=== PATIENT | male | born 1945 | race Caucasian/White ===

== ENCOUNTER 2024-05-25 10:25 | Day surgery (SDC) | payer MEDICARE, OTHER ==
[2024-05-25] MEDS ORDERED: Propofol 200 MG/20 ML SDV ONE (11:10)
[2024-05-25] MEDS ORDERED: fentaNYL 100 MCG/2 ML SDV ONE (11:10)
[2024-05-25] MEDS: Lactated Ringers 1,000 ML IV SCH (11:26)
== END 2024-05-25 13:30 | disposition home or self-care (01) ==
LOC: VM.SDS 10:25
PROVIDERS: ATTEND Family Medicine
DX: K29.50 Unspecified chronic gastritis without bleeding (principal); K31.89 Other diseases of stomach and duodenum; K31.7 Polyp of stomach and duodenum; D50.9 Iron deficiency anemia, unspecified; K92.1 Melena; K21.9 Gastro-esophageal reflux disease without esophagitis; I12.9 Hypertensive chronic kidney disease with stage 1 through stage 4 chronic kidney disease, or unspecified chronic kidney disease; N18.30 Chronic kidney disease, stage 3 unspecified; E66.9 Obesity, unspecified; Z88.5 Allergy status to narcotic agent; Z90.49 Acquired absence of other specified parts of digestive tract; Z79.899 Other long term (current) drug therapy
CPT/HCPCS: 00731; 43239; 43251; 88305; 88342; 99100; J2704; J3010; J7120

== ENCOUNTER 2025-03-09 16:26 | Emergency (ER) | payer MEDICARE, OTHER ==
[2025-03-09] MEDS ORDERED: Sodium Chloride 0.9% 10 ML Syringe FLUSH PRN (16:44)
[2025-03-09] MEDS: Lactated Ringers 1,000 ML IV ONE (17:03)
== END 2025-03-09 18:05 | disposition home or self-care (01) ==
LOC: VM.ED 16:26
DX: E86.0 Dehydration (principal); I10 Essential (primary) hypertension; K21.9 Gastro-esophageal reflux disease without esophagitis; Z90.49 Acquired absence of other specified parts of digestive tract; Z88.5 Allergy status to narcotic agent; Z88.8 Allergy status to other drugs, medicaments and biological substances
CPT/HCPCS: 96360; 99281-25; 99284; J7120

== ENCOUNTER 2025-03-16 09:46 | Emergency (ER) | payer MEDICARE, OTHER ==
[2025-03-16 10:13] LABS: APPEARANCE,URINE SLIGHTLY CLOUDY (CLEAR); GLUCOSE,URINE NEGATIVE (NEGATIVE); OCCULT BLOOD,URINE SMALL (NEGATIVE)
[2025-03-16 10:14] LABS: SQUAMOUS EPITHELIAL CELLS,UR FEW /HPF (NOT SEEN)
[2025-03-16 10:40] LABS: BASOPHILS ABSOLUTE AUTO 0.0 x10^3/uL (0.0-0.2); BASOPHILS PERCENT AUTO 0.6 % (0.2-1.2); EOSINOPHILS ABSOLUTE AUTO 0.0 x10^3/uL (0.0-0.5); EOSINOPHILS PERCENT AUTO 0.5 % (0.0-4.0); IMMATURE GRAN ABSOLUTE AUTO 0.02 x10^3/uL (0.00-0.07); IMMATURE GRAN PERCENT AUTO 0.30 % (0.00-0.43); LYMPHOCYTES ABSOLUTE AUTO 0.3 x10^3/uL (1.0-4.8); LYMPHOCYTES PERCENT AUTO 4.4 % (25.0-50.0); MONOCYTES ABSOLUTE AUTO 0.8 x10^3/uL (0.0-0.8); MONOCYTES PERCENT AUTO 11.8 % (2.0-11.0); NEUTROPHILS ABSOLUTE AUTO 5.5 x10^3/uL (1.8-7.7); NEUTROPHILS PERCENT AUTO 82.4 % (50.0-80.0); RED BLOOD CELL COUNT 2.87 x10^6/uL (4.5-6.0); WHITE BLOOD CELL COUNT,WBC 6.6 x10^3/uL (4.0-10.0)
[2025-03-16 10:49] LABS: PLATELET COUNT,PLT 214 x10^3/uL (130-400)
[2025-03-16 11:00] LABS: A/G RATIO 0.61; ALANINE AMINOTRANSFERASE,ALT 15.0 U/L (16-63); ASPARTATE AMNIOTRANSFERASE,AST 10.0 U/L (15-37); BILIRUBIN TOTAL 0.5 mg/dL (0.2-1.0); BLOOD UREA NITROGEN,BUN 24.0 mg/dL (7-18); CARBON DIOXIDE,CO2 24.0 mmol/L (21-32); CHLORIDE,CL 105.0 mmol/L (98-107); CREATININE 2.1 mg/dL (0.70-1.30); EST CRCL DRUG DOSING (CG) 30.38 mL/min; GLUCOSE RANDOM 124.0 mg/dL (70-99); POTASSIUM,K 4.2 mmol/L (3.5-5.1); PROTEIN TOTAL,TP 6.6 g/dL (6.4-8.2); SODIUM,NA 139.0 mmol/L (136-145)
[2025-03-16 11:01] LABS: ESTIMATED GFR 31.0 mL/min (>=60)
[2025-03-16] MEDS ORDERED: Sodium Chloride 0.9% 10 ML Syringe FLUSH PRN (11:11)
== END 2025-03-16 12:15 | disposition home or self-care (01) ==
LOC: VM.ED 09:46
DX: N30.90 Cystitis, unspecified without hematuria (principal); I10 Essential (primary) hypertension; K21.9 Gastro-esophageal reflux disease without esophagitis; E86.0 Dehydration; Z88.5 Allergy status to narcotic agent; Z88.8 Allergy status to other drugs, medicaments and biological substances; Z79.899 Other long term (current) drug therapy; Z90.49 Acquired absence of other specified parts of digestive tract
CPT/HCPCS: 36415; 51798; 80053; 81001; 83605; 85025; 87086; 87088; 87186; 96361; 96374; 99284; 99284-25; A9270-GY; J0696; J7030

== ENCOUNTER 2025-03-16 17:34 | Inpatient (IN) | payer MEDICARE, OTHER ==
[2025-03-16] MEDS ORDERED: Sodium Chloride 0.9% 10 ML Syringe FLUSH PRN (17:36)
[2025-03-16 17:50] LABS: BASOPHILS ABSOLUTE AUTO 0.0 x10^3/uL (0.0-0.2); BASOPHILS PERCENT AUTO 0.6 % (0.2-1.2); EOSINOPHILS ABSOLUTE AUTO 0.1 x10^3/uL (0.0-0.5); EOSINOPHILS PERCENT AUTO 1.6 % (0.0-4.0); IMMATURE GRAN ABSOLUTE AUTO 0.01 x10^3/uL (0.00-0.07); IMMATURE GRAN PERCENT AUTO 0.20 % (0.00-0.43); LYMPHOCYTES ABSOLUTE AUTO 0.2 x10^3/uL (1.0-4.8); LYMPHOCYTES PERCENT AUTO 3.6 % (25.0-50.0); MONOCYTES ABSOLUTE AUTO 0.6 x10^3/uL (0.0-0.8); MONOCYTES PERCENT AUTO 11.0 % (2.0-11.0); NEUTROPHILS ABSOLUTE AUTO 4.1 x10^3/uL (1.8-7.7); NEUTROPHILS PERCENT AUTO 83.0 % (50.0-80.0); PLATELET COUNT,PLT 170 x10^3/uL (130-400); RED BLOOD CELL COUNT 2.75 x10^6/uL (4.5-6.0)
[2025-03-16 17:53] LABS: WHITE BLOOD CELL COUNT,WBC 5.0 x10^3/uL (4.0-10.0)
[2025-03-16 18:13] LABS: A/G RATIO 0.58; ALANINE AMINOTRANSFERASE,ALT 15 U/L (16-63); ASPARTATE AMNIOTRANSFERASE,AST 13 U/L (15-37); BILIRUBIN TOTAL 0.4 mg/dL (0.2-1.0); BLOOD UREA NITROGEN,BUN 25 mg/dL (7-18); CARBON DIOXIDE,CO2 22 mmol/L (21-32); CHLORIDE,CL 106 mmol/L (98-107); CREATININE 2.2 mg/dL (0.70-1.30); ESTIMATED GFR 30 mL/min (>=60); GLUCOSE RANDOM 140 mg/dL (70-99); POTASSIUM,K 3.9 mmol/L (3.5-5.1); PROTEIN TOTAL,TP 6.3 g/dL (6.4-8.2); SODIUM,NA 139 mmol/L (136-145)
[2025-03-16] MEDS ORDERED: Fluticasone Propionate Nasal Spray 9.9 ML BOTTLE NASBOTH PRN (19:16)
[2025-03-16] MEDS ORDERED: Silver Sulfadiazine 1% Crm 50 GM Tube TOP SCH (21:00)
[2025-03-16] MEDS: Miconazole 2% Top Powder 45 GM Container TOP SCH (21:08)
[2025-03-17 08:05] LABS: BASOPHILS ABSOLUTE AUTO 0.0 x10^3/uL (0.0-0.2); BASOPHILS PERCENT AUTO 0.9 % (0.2-1.2); EOSINOPHILS ABSOLUTE AUTO 0.1 x10^3/uL (0.0-0.5); EOSINOPHILS PERCENT AUTO 2.4 % (0.0-4.0); IMMATURE GRAN ABSOLUTE AUTO 0.02 x10^3/uL (0.00-0.07); IMMATURE GRAN PERCENT AUTO 0.50 % (0.00-0.43); LYMPHOCYTES ABSOLUTE AUTO 0.2 x10^3/uL (1.0-4.8); LYMPHOCYTES PERCENT AUTO 5.7 % (25.0-50.0); MONOCYTES ABSOLUTE AUTO 0.7 x10^3/uL (0.0-0.8); MONOCYTES PERCENT AUTO 15.8 % (2.0-11.0); NEUTROPHILS ABSOLUTE AUTO 3.2 x10^3/uL (1.8-7.7); NEUTROPHILS PERCENT AUTO 74.7 % (50.0-80.0); PLATELET COUNT,PLT 143 x10^3/uL (130-400); RED BLOOD CELL COUNT 2.65 x10^6/uL (4.5-6.0); WHITE BLOOD CELL COUNT,WBC 4.2 x10^3/uL (4.0-10.0)
[2025-03-17 08:18] LABS: A/G RATIO 0.49; ALANINE AMINOTRANSFERASE,ALT 12.0 U/L (16-63); ASPARTATE AMNIOTRANSFERASE,AST 13.0 U/L (15-37); BILIRUBIN TOTAL 0.4 mg/dL (0.2-1.0); BLOOD UREA NITROGEN,BUN 23.0 mg/dL (7-18); CARBON DIOXIDE,CO2 22.0 mmol/L (21-32); CHLORIDE,CL 109.0 mmol/L (98-107); CREATININE 2.2 mg/dL (0.70-1.30); EST CRCL DRUG DOSING (CG) 25.46 mL/min; GLUCOSE RANDOM 109.0 mg/dL (70-99); POTASSIUM,K 3.9 mmol/L (3.5-5.1); PROTEIN TOTAL,TP 6.1 g/dL (6.4-8.2); SODIUM,NA 142.0 mmol/L (136-145)
[2025-03-17 08:21] LABS: ESTIMATED GFR 30.0 mL/min (>=60)
[2025-03-17] MEDS: Cholecalciferol (Vitamin D3) 25 MCG Tab PO SCH (08:57)
[2025-03-17] MEDS: Psyllium Husk Powder Sugar Free 5.85 GM Packet PO SCH (09:01)
[2025-03-17] MEDS: Ondansetron 4 MG/2 ML SDV IVPUSH PRN (22:16)
[2025-03-18 08:13] LABS: BASOPHILS ABSOLUTE AUTO 0.0 x10^3/uL (0.0-0.2); BASOPHILS PERCENT AUTO 1.3 % (0.2-1.2); EOSINOPHILS ABSOLUTE AUTO 0.4 x10^3/uL (0.0-0.5); EOSINOPHILS PERCENT AUTO 13.8 % (0.0-4.0); IMMATURE GRAN ABSOLUTE AUTO 0.01 x10^3/uL (0.00-0.07); IMMATURE GRAN PERCENT AUTO 0.30 % (0.00-0.43); LYMPHOCYTES ABSOLUTE AUTO 0.3 x10^3/uL (1.0-4.8); LYMPHOCYTES PERCENT AUTO 10.1 % (25.0-50.0); MONOCYTES ABSOLUTE AUTO 0.7 x10^3/uL (0.0-0.8); MONOCYTES PERCENT AUTO 24.5 % (2.0-11.0); NEUTROPHILS ABSOLUTE AUTO 1.5 x10^3/uL (1.8-7.7); NEUTROPHILS PERCENT AUTO 50.0 % (50.0-80.0); PLATELET COUNT,PLT 144 x10^3/uL (130-400); RED BLOOD CELL COUNT 2.82 x10^6/uL (4.5-6.0); WHITE BLOOD CELL COUNT,WBC 3.0 x10^3/uL (4.0-10.0)
[2025-03-18 08:34] LABS: A/G RATIO 0.5; ASPARTATE AMNIOTRANSFERASE,AST 14.0 U/L (15-37); BILIRUBIN TOTAL 0.2 mg/dL (0.2-1.0); BLOOD UREA NITROGEN,BUN 24.0 mg/dL (7-18); CARBON DIOXIDE,CO2 24.0 mmol/L (21-32); CHLORIDE,CL 109.0 mmol/L (98-107); CREATININE 1.9 mg/dL (0.70-1.30); EST CRCL DRUG DOSING (CG) 29.47 mL/min; GLUCOSE RANDOM 103.0 mg/dL (70-99); POTASSIUM,K 3.7 mmol/L (3.5-5.1); PROTEIN TOTAL,TP 6.3 g/dL (6.4-8.2); SODIUM,NA 142.0 mmol/L (136-145)
[2025-03-18 08:35] LABS: ESTIMATED GFR 35.0 mL/min (>=60)
[2025-03-18 08:56] LABS: ALANINE AMINOTRANSFERASE,ALT 16.0 U/L (16-63)
[2025-03-19 06:54] LABS: BASOPHILS ABSOLUTE AUTO 0.1 x10^3/uL (0.0-0.2); BASOPHILS PERCENT AUTO 1.9 % (0.2-1.2); EOSINOPHILS ABSOLUTE AUTO 0.5 x10^3/uL (0.0-0.5); EOSINOPHILS PERCENT AUTO 16.9 % (0.0-4.0); IMMATURE GRAN ABSOLUTE AUTO 0.01 x10^3/uL (0.00-0.07); IMMATURE GRAN PERCENT AUTO 0.30 % (0.00-0.43); LYMPHOCYTES ABSOLUTE AUTO 0.3 x10^3/uL (1.0-4.8); LYMPHOCYTES PERCENT AUTO 10.2 % (25.0-50.0); MONOCYTES ABSOLUTE AUTO 0.8 x10^3/uL (0.0-0.8); MONOCYTES PERCENT AUTO 24.8 % (2.0-11.0); NEUTROPHILS ABSOLUTE AUTO 1.4 x10^3/uL (1.8-7.7); NEUTROPHILS PERCENT AUTO 45.9 % (50.0-80.0); RED BLOOD CELL COUNT 2.69 x10^6/uL (4.5-6.0); WHITE BLOOD CELL COUNT,WBC 3.1 x10^3/uL (4.0-10.0)
[2025-03-19 07:09] LABS: A/G RATIO 0.51; ALANINE AMINOTRANSFERASE,ALT 17.0 U/L (16-63); ASPARTATE AMNIOTRANSFERASE,AST 17.0 U/L (15-37); BILIRUBIN TOTAL 0.1 mg/dL (0.2-1.0); BLOOD UREA NITROGEN,BUN 22.0 mg/dL (7-18); CARBON DIOXIDE,CO2 23.0 mmol/L (21-32); CHLORIDE,CL 109.0 mmol/L (98-107); CREATININE 1.6 mg/dL (0.70-1.30); EST CRCL DRUG DOSING (CG) 35.0 mL/min; GLUCOSE RANDOM 105.0 mg/dL (70-99); POTASSIUM,K 3.6 mmol/L (3.5-5.1); PROTEIN TOTAL,TP 6.2 g/dL (6.4-8.2); SODIUM,NA 142.0 mmol/L (136-145)
[2025-03-19 07:10] LABS: ESTIMATED GFR 44.0 mL/min (>=60); PLATELET COUNT,PLT 139 x10^3/uL (130-400)
[2025-03-19] MEDS: Iron Sucrose Complex 100 MG/5 ML SDV IVPUSH ONE (09:19)
[2025-03-20 07:05] LABS: BASOPHILS ABSOLUTE AUTO 0.0 x10^3/uL (0.0-0.2); BASOPHILS PERCENT AUTO 0.9 % (0.2-1.2); EOSINOPHILS ABSOLUTE AUTO 0.7 x10^3/uL (0.0-0.5); EOSINOPHILS PERCENT AUTO 23.0 % (0.0-4.0); IMMATURE GRAN ABSOLUTE AUTO 0.01 x10^3/uL (0.00-0.07); IMMATURE GRAN PERCENT AUTO 0.30 % (0.00-0.43); LYMPHOCYTES ABSOLUTE AUTO 0.3 x10^3/uL (1.0-4.8); LYMPHOCYTES PERCENT AUTO 9.5 % (25.0-50.0); MONOCYTES ABSOLUTE AUTO 0.6 x10^3/uL (0.0-0.8); MONOCYTES PERCENT AUTO 18.0 % (2.0-11.0); NEUTROPHILS ABSOLUTE AUTO 1.5 x10^3/uL (1.8-7.7); NEUTROPHILS PERCENT AUTO 48.3 % (50.0-80.0); PLATELET COUNT,PLT 138 x10^3/uL (130-400); RED BLOOD CELL COUNT 2.62 x10^6/uL (4.5-6.0)
[2025-03-20 07:26] LABS: WHITE BLOOD CELL COUNT,WBC 3.2 x10^3/uL (4.0-10.0)
[2025-03-20 07:34] LABS: A/G RATIO 0.54; ALANINE AMINOTRANSFERASE,ALT 21.0 U/L (16-63); ASPARTATE AMNIOTRANSFERASE,AST 21.0 U/L (15-37); BILIRUBIN TOTAL 0.2 mg/dL (0.2-1.0); BLOOD UREA NITROGEN,BUN 21.0 mg/dL (7-18); CARBON DIOXIDE,CO2 25.0 mmol/L (21-32); CHLORIDE,CL 109.0 mmol/L (98-107); CREATININE 1.5 mg/dL (0.70-1.30); EST CRCL DRUG DOSING (CG) 37.33 mL/min; ESTIMATED GFR 47.0 mL/min (>=60); GLUCOSE RANDOM 105.0 mg/dL (70-99); POTASSIUM,K 3.3 mmol/L (3.5-5.1); PROTEIN TOTAL,TP 6.0 g/dL (6.4-8.2); SODIUM,NA 142.0 mmol/L (136-145)
[2025-03-20] MEDS: Furosemide 20 MG/2 ML VIAL IV ONE (10:35)
[2025-03-20] MEDS: Potassium Chloride 10 MEQ Tab.ER PO SCH (10:35)
[2025-03-20] MEDS: Lidocaine 2% HCl 11 ML Jelly Filled Syringe MUCMEM ONE (14:55)
[2025-03-21 06:59] LABS: BASOPHILS ABSOLUTE AUTO 0.0 x10^3/uL (0.0-0.2); BASOPHILS PERCENT AUTO 0.8 % (0.2-1.2); EOSINOPHILS ABSOLUTE AUTO 0.8 x10^3/uL (0.0-0.5); EOSINOPHILS PERCENT AUTO 19.5 % (0.0-4.0); IMMATURE GRAN ABSOLUTE AUTO 0.04 x10^3/uL (0.00-0.07); IMMATURE GRAN PERCENT AUTO 1.00 % (0.00-0.43); LYMPHOCYTES ABSOLUTE AUTO 0.5 x10^3/uL (1.0-4.8); LYMPHOCYTES PERCENT AUTO 12.2 % (25.0-50.0); MONOCYTES ABSOLUTE AUTO 0.5 x10^3/uL (0.0-0.8); MONOCYTES PERCENT AUTO 14.1 % (2.0-11.0); NEUTROPHILS ABSOLUTE AUTO 2.0 x10^3/uL (1.8-7.7); NEUTROPHILS PERCENT AUTO 52.4 % (50.0-80.0); PLATELET COUNT,PLT 151 x10^3/uL (130-400); RED BLOOD CELL COUNT 2.73 x10^6/uL (4.5-6.0)
[2025-03-21 07:15] LABS: WHITE BLOOD CELL COUNT,WBC 3.8 x10^3/uL (4.0-10.0)
[2025-03-21 07:33] LABS: BLOOD UREA NITROGEN,BUN 22.0 mg/dL (7-18); CARBON DIOXIDE,CO2 25.0 mmol/L (21-32); CHLORIDE,CL 109.0 mmol/L (98-107); CREATININE 1.5 mg/dL (0.70-1.30); EST CRCL DRUG DOSING (CG) 37.33 mL/min; GLUCOSE RANDOM 101.0 mg/dL (70-99); POTASSIUM,K 3.4 mmol/L (3.5-5.1); SODIUM,NA 143.0 mmol/L (136-145)
[2025-03-21 07:34] LABS: ESTIMATED GFR 47.0 mL/min (>=60)
[2025-03-21] MEDS: Magnesium Sulfate 2 GM/50 mL 2 GM in Premix Bag 1 BAG IV ONE (10:33)
[2025-03-21] MEDS: Potassium Chloride 10 MEQ Tab.ER PO ONE (10:33)
== END 2025-03-21 11:31 | disposition swing bed (61) | DRG 689 ==
LOC: VM.ED 17:34 → VM.MS 18:22 → OBSVTOIN 03-18 10:59
PROVIDERS: ADMIT Nurse Practitioner Family; ATTEND Internal Medicine
DX: N30.00 Acute cystitis without hematuria (principal); N39.0 Urinary tract infection, site not specified; I10 Essential (primary) hypertension; E66.9 Obesity, unspecified; I50.31 Acute diastolic (congestive) heart failure; N17.9 Acute kidney failure, unspecified; K51.90 Ulcerative colitis, unspecified, without complications; E44.0 Moderate protein-calorie malnutrition; B96.1 Klebsiella pneumoniae [K. pneumoniae] as the cause of diseases classified elsewhere; N18.9 Chronic kidney disease, unspecified; I11.0 Hypertensive heart disease with heart failure; N40.0 Benign prostatic hyperplasia without lower urinary tract symptoms; E83.42 Hypomagnesemia; D64.9 Anemia, unspecified; M06.9 Rheumatoid arthritis, unspecified; D50.9 Iron deficiency anemia, unspecified; K21.9 Gastro-esophageal reflux disease without esophagitis; E55.9 Vitamin D deficiency, unspecified; E87.6 Hypokalemia; Z96.659 Presence of unspecified artificial knee joint; Z98.890 Other specified postprocedural states; Z88.8 Allergy status to other drugs, medicaments and biological substances; Z90.49 Acquired absence of other specified parts of digestive tract; Z68.31 Body mass index [BMI] 31.0-31.9, adult; Z98.49 Cataract extraction status, unspecified eye; Z93.2 Ileostomy status; Z79.899 Other long term (current) drug therapy
CPT/HCPCS: 36415; 51702; 51798; 71045; 71046; 74176; 80048; 80053; 83605; 83735; 83880; 85018; 85025; 96361; 96372; 96374; 96375; 96376; 97112-GP; 97116-GP; 97161-GP; 97165-GO; 97535-GO; 99284; 99285; A4315; A9270-GY; G0378; J0696; J1650; J1756; J1938; J2405; J3475; J7030

== ENCOUNTER 2025-03-21 10:49 | Inpatient (IN) | payer MEDICARE, OTHER ==
[2025-03-21] MEDS ORDERED: Ondansetron 4 MG/2 ML SDV IVPUSH PRN (12:20)
[2025-03-21] MEDS: Miconazole 2% Top Powder 45 GM Container TOP SCH (20:55)
[2025-03-22 06:40] LABS: BASOPHILS ABSOLUTE AUTO 0.1 x10^3/uL (0.0-0.2); BASOPHILS PERCENT AUTO 1.1 % (0.2-1.2); EOSINOPHILS ABSOLUTE AUTO 0.8 x10^3/uL (0.0-0.5); EOSINOPHILS PERCENT AUTO 15.8 % (0.0-4.0); IMMATURE GRAN ABSOLUTE AUTO 0.05 x10^3/uL (0.00-0.07); IMMATURE GRAN PERCENT AUTO 1.10 % (0.00-0.43); LYMPHOCYTES ABSOLUTE AUTO 0.4 x10^3/uL (1.0-4.8); LYMPHOCYTES PERCENT AUTO 9.2 % (25.0-50.0); MONOCYTES ABSOLUTE AUTO 0.6 x10^3/uL (0.0-0.8); MONOCYTES PERCENT AUTO 12.6 % (2.0-11.0); NEUTROPHILS ABSOLUTE AUTO 2.9 x10^3/uL (1.8-7.7); NEUTROPHILS PERCENT AUTO 60.2 % (50.0-80.0); PLATELET COUNT,PLT 169 x10^3/uL (130-400); RED BLOOD CELL COUNT 2.77 x10^6/uL (4.5-6.0)
[2025-03-22 06:49] LABS: WHITE BLOOD CELL COUNT,WBC 4.8 x10^3/uL (4.0-10.0)
[2025-03-22 06:55] LABS: BLOOD UREA NITROGEN,BUN 21.0 mg/dL (7-18); CARBON DIOXIDE,CO2 25.0 mmol/L (21-32); CHLORIDE,CL 108.0 mmol/L (98-107); CREATININE 1.5 mg/dL (0.70-1.30); EST CRCL DRUG DOSING (CG) 37.33 mL/min; GLUCOSE RANDOM 96.0 mg/dL (70-99); POTASSIUM,K 3.6 mmol/L (3.5-5.1); SODIUM,NA 142.0 mmol/L (136-145)
[2025-03-22 06:57] LABS: ESTIMATED GFR 47.0 mL/min (>=60)
[2025-03-22] MEDS: Potassium Chloride 10 MEQ Tab.ER PO SCH (09:28)
[2025-03-22] MEDS: Cholecalciferol (Vitamin D3) 25 MCG Tab PO SCH (09:29)
[2025-03-22] MEDS: Psyllium Husk Powder Sugar Free 5.85 GM Packet PO SCH (09:30)
[2025-03-22] MEDS: Albuterol 0.083% 2.5 MG/3 ML Neb Soln NEB PRN (16:37)
[2025-03-23] MEDS ORDERED: Sodium Chloride 0.9% 10 ML Syringe IV PRN (08:22)
[2025-03-23] MEDS: Sodium Chloride 0.9% 10 ML Syringe FLUSH PRN (11:24)
[2025-03-23] MEDS: Iron Sucrose Complex 100 MG/5 ML SDV IVPUSH ONE (11:30)
[2025-03-23] MEDS: guaiFENesin/Dextromethorphan 100-10 MG/5 ML Soln 10 ML Cup PO PRN (19:24)
[2025-03-24 08:10] LABS: BASOPHILS ABSOLUTE AUTO 0.0 x10^3/uL (0.0-0.2); BASOPHILS PERCENT AUTO 0.6 % (0.2-1.2); EOSINOPHILS ABSOLUTE AUTO 0.9 x10^3/uL (0.0-0.5); EOSINOPHILS PERCENT AUTO 13.1 % (0.0-4.0); IMMATURE GRAN ABSOLUTE AUTO 0.06 x10^3/uL (0.00-0.07); IMMATURE GRAN PERCENT AUTO 0.80 % (0.00-0.43); LYMPHOCYTES ABSOLUTE AUTO 0.4 x10^3/uL (1.0-4.8); LYMPHOCYTES PERCENT AUTO 5.0 % (25.0-50.0); MONOCYTES ABSOLUTE AUTO 0.9 x10^3/uL (0.0-0.8); MONOCYTES PERCENT AUTO 12.0 % (2.0-11.0); NEUTROPHILS ABSOLUTE AUTO 4.9 x10^3/uL (1.8-7.7); NEUTROPHILS PERCENT AUTO 68.5 % (50.0-80.0); PLATELET COUNT,PLT 211 x10^3/uL (130-400); RED BLOOD CELL COUNT 2.83 x10^6/uL (4.5-6.0)
[2025-03-24 08:23] LABS: BLOOD UREA NITROGEN,BUN 19.0 mg/dL (7-18); CARBON DIOXIDE,CO2 25.0 mmol/L (21-32); CHLORIDE,CL 105.0 mmol/L (98-107); CREATININE 1.6 mg/dL (0.70-1.30); EST CRCL DRUG DOSING (CG) 35.0 mL/min; GLUCOSE RANDOM 101.0 mg/dL (70-99); POTASSIUM,K 3.8 mmol/L (3.5-5.1); SODIUM,NA 139.0 mmol/L (136-145)
[2025-03-24 08:28] LABS: WHITE BLOOD CELL COUNT,WBC 7.2 x10^3/uL (4.0-10.0)
[2025-03-24 08:29] LABS: ESTIMATED GFR 44.0 mL/min (>=60)
[2025-03-25] MEDS: Fluticasone Propionate Nasal Spray 9.9 ML BOTTLE NASBOTH PRN (13:20)
[2025-03-26 06:56] LABS: A/G RATIO 0.52; ALANINE AMINOTRANSFERASE,ALT 13.0 U/L (16-63); ASPARTATE AMNIOTRANSFERASE,AST 12.0 U/L (15-37); BASOPHILS ABSOLUTE AUTO 0.0 x10^3/uL (0.0-0.2); BASOPHILS PERCENT AUTO 0.8 % (0.2-1.2); BILIRUBIN TOTAL 0.2 mg/dL (0.2-1.0); BLOOD UREA NITROGEN,BUN 20.0 mg/dL (7-18); CARBON DIOXIDE,CO2 24.0 mmol/L (21-32); CHLORIDE,CL 105.0 mmol/L (98-107); CREATININE 1.7 mg/dL (0.70-1.30); EOSINOPHILS ABSOLUTE AUTO 0.5 x10^3/uL (0.0-0.5); EOSINOPHILS PERCENT AUTO 9.7 % (0.0-4.0); EST CRCL DRUG DOSING (CG) 32.94 mL/min; GLUCOSE RANDOM 95.0 mg/dL (70-99); IMMATURE GRAN ABSOLUTE AUTO 0.05 x10^3/uL (0.00-0.07); IMMATURE GRAN PERCENT AUTO 1.00 % (0.00-0.43); LYMPHOCYTES ABSOLUTE AUTO 0.4 x10^3/uL (1.0-4.8); LYMPHOCYTES PERCENT AUTO 6.8 % (25.0-50.0); MONOCYTES ABSOLUTE AUTO 1.0 x10^3/uL (0.0-0.8); MONOCYTES PERCENT AUTO 18.7 % (2.0-11.0); NEUTROPHILS ABSOLUTE AUTO 3.3 x10^3/uL (1.8-7.7); NEUTROPHILS PERCENT AUTO 63.0 % (50.0-80.0); PLATELET COUNT,PLT 245 x10^3/uL (130-400); POTASSIUM,K 3.9 mmol/L (3.5-5.1); PROTEIN TOTAL,TP 6.4 g/dL (6.4-8.2); RED BLOOD CELL COUNT 2.88 x10^6/uL (4.5-6.0); SODIUM,NA 138.0 mmol/L (136-145); WHITE BLOOD CELL COUNT,WBC 5.2 x10^3/uL (4.0-10.0)
[2025-03-26 07:00] LABS: ESTIMATED GFR 41.0 mL/min (>=60)
[2025-03-26] MEDS: Albuterol HFA 18 Gm Inhaler INH PRN (10:39)
== END 2025-03-26 14:40 | disposition home or self-care (01) | DRG 948 ==
LOC: VM.MS 11:59
PROVIDERS: ADMIT Internal Medicine; ATTEND Internal Medicine
DX: R53.1 Weakness (principal); E44.0 Moderate protein-calorie malnutrition; N17.9 Acute kidney failure, unspecified; I13.0 Hypertensive heart and chronic kidney disease with heart failure and stage 1 through stage 4 chronic kidney disease, or unspecified chronic kidney disease; N13.6 Pyonephrosis; K50.90 Crohn's disease, unspecified, without complications; T83.511D Infection and inflammatory reaction due to indwelling urethral catheter, subsequent encounter; M06.9 Rheumatoid arthritis, unspecified; D50.9 Iron deficiency anemia, unspecified; E87.6 Hypokalemia; E83.42 Hypomagnesemia; E86.0 Dehydration; K21.9 Gastro-esophageal reflux disease without esophagitis; H91.90 Unspecified hearing loss, unspecified ear; E55.9 Vitamin D deficiency, unspecified; I50.9 Heart failure, unspecified; M81.0 Age-related osteoporosis without current pathological fracture; B96.1 Klebsiella pneumoniae [K. pneumoniae] as the cause of diseases classified elsewhere; N40.1 Benign prostatic hyperplasia with lower urinary tract symptoms; R33.8 Other retention of urine; N18.9 Chronic kidney disease, unspecified; Z96.659 Presence of unspecified artificial knee joint; Z88.8 Allergy status to other drugs, medicaments and biological substances; Z79.899 Other long term (current) drug therapy; Z98.890 Other specified postprocedural states; Z68.25 Body mass index [BMI] 25.0-25.9, adult; Z93.2 Ileostomy status; Z85.068 Personal history of other malignant neoplasm of small intestine; Z87.442 Personal history of urinary calculi; Z98.49 Cataract extraction status, unspecified eye; Y84.6 Urinary catheterization as the cause of abnormal reaction of the patient, or of later complication, without mention of misadventure at the time of the procedure
CPT/HCPCS: 36415; 80048; 80053; 85025; 94640; 97112-GP; 97116-GP; 97168-GO; 97535-GO; A9270-GY; J1642; J1650; J1756; J7050